=== PATIENT | male | born 1990 ===

== ENCOUNTER 2019-01-05 21:13 | Emergency (ER) ==
[~2019-01-05] VITALS: Ht 175.3 cm; Wt 77.1 kg
--- OUTSIDE RECORDS SUMMARY | 2019-01-05 21:16 | XMS REPORT | Clinical Summary ---
Author Author [facility] Organization [facility] Address Unknown Phone Unavailable Care Team Providers Care Loss Prevention And Safety Manager Name Role Phone Rachel Reza DO PCP Allergies No Known Allergies Medications End Date Status Medication Sig Dispensed Refills Start Date Active citalopram (CeleXA) 20 MG Take 40 mg by 0 tablet mouth daily. Active mirtazapine (REMERON Take 30 mg by 0 JOSEPHINE-TAB) 30 MG mouth disintegrating tablet nightly. Active traZODone (DESYREL) 100 Take 200 mg 0 MG tablet by mouth nightly. 09/27/2019 Active hydrocortisone 1 % cream Apply to 15 g 0 affected area 9 2 times daily. Ok to use on face or sensitive areas. Active divalproex (DEPAKOTE) 500 Take 500 mg 0 MG EC tablet by mouth 2 (two) times a day. 10/02/2018 methylPREDNISolone follow 21 tablet 0 (MEDROL DOSEPAK) 4 mg package 9 tablet directions 10/27/2018 hydrocortisone 2.5 % Apply 59 mL 0 lotion topically 2 9 (two) times a day for 30 days. Do not use on face or genitalia. Active Problems Not on file Encounters Care Team Description Date Type Specialty Itz Abdalla MD Rash (Primary Dx); Allergic contact dermatitis due to plants, except food 09/27/2018 Emergency Emergency Medicine 09/27/2018 Travel after 01/04/2018 Social History Date Tobacco Use Types Packs/Day Years Used Current Every Day Smoker Cigarettes 0.5 Smokeless Tobacco: Never Used Drinks/Week oz/Week Comments Alcohol Use Yes Sex Assigned at Date Recorded Not on file Industry Job Start Date Occupation Not on file Not on file Not on file Travel End Travel History Travel Start No recent travel history available. Last Filed Vital Signs Reading Time Taken Comments Vital Sign 140/82 09/27/2018 7:12 AM CDT Blood Pressure 63 09/27/2018 7:12 AM CDT Pulse 36.8 C (98.2 F) 09/27/2018 7:12 AM CDT Temperature 16 09/27/2018 7:12 AM CDT Respiratory Rate 98% 09/27/2018 7:12 AM CDT Oxygen Saturation - - Inhaled Oxygen Concentration 81.6 kg (180 lb) 09/27/2018 7:21 AM CDT Weight 175.3 cm (5' 9") 09/27/2018 7:21 AM CDT Height 26.58 09/27/2018 7:21 AM CDT Body Mass Index Plan of Treatment Health Maintenance Due Date Last Done Comments INFLUENZA VACCINE 11/20/2018 Results Not on fileafter 01/04/2018 Advance Directives For more information, please contact: [phone] Patient Scrap Preparation Supervisor Explanation Type Date Recorded Advance Directives, 03/29/2016 11:58 AM Living Will and Medical Power of T[employer] Roller
--- NOTE | 2019-01-05 21:40 | NUR ---
PT SIGNED OUT AMA, STATES HE DOES NOT WANT TO STAY FOR EVALUATION BECAUSE HE HAS TO GO TO WORK, AWAKE ALERT SKIN W/D RESP NONLAB, ORIENTED X4, AMBULATORY IN [place] ROOM. ADVISED PT HE COULD HAVE MORE SEIZURES AND COULD HAVE POSSIBLE INJURIES THAT HAVE NOT BEEN RULED OUT, ADVISED LEAVING COULD RESULT IN DEBILITATING INJURIES AND OR , PT STATES HE IS WILLING TO ACCEPT RISKS OF LEAVING AND DOES NOT WANT TO STAY ANY LONGER. DR HUTCHINSON AWARE. APPEARS CAPABLE OF MAKING DECISION TO LEAVE AMA
== END 2019-01-05 21:40 | disposition left against medical advice (07) ==
LOC: ER 21:13
DX: G40.309 Generalized idiopathic epilepsy and epileptic syndromes, not intractable, without status epilepticus (principal)
CPT/HCPCS: 99281